=== PATIENT | female | born 1985 | race Asian ===

== ENCOUNTER 2019-10-15 20:18 | Emergency (ER) | payer BC ==
[~2019-10-15] VITALS: Ht 167.6 cm; Wt 53.6 kg
[2019-10-15 21:01] LABS: CALCIUM 8.4 mg/dL (8.5-10.1); CARBON DIOXIDE 28.9 mmol/L (21-32); CHLORIDE SERUM 103 mmol/L (98-107); CREATININE SERUM 0.9 mg/dL (0.6-1.0); GFR1 > 60 mL/min; GLUCOSE SERUM 118 mg/dL (74-106); POTASSIUM SERUM 3.4 mmol/L (3.5-5.1); SODIUM SERUM 139 mmol/L (136-145)
[2019-10-15 21:13] LABS: ALBUMIN 4.1 g/dL (3.4-5.0); ALKALINE PHOSPHATASE 66 U/L (46-116); ALT/SGPT 28 U/L (14-59); AST/SGOT 16 U/L (15-37); BASOPHIL % 0.3 % (0-2); BILIRUBIN TOTAL 0.47 mg/dL (0.20-1.00); LIPASE 174 IU/L (73-393); MAGNESIUM 2.4 mg/dL (1.8-2.4); PLATELET COUNT 250 x10^3mcL (130-400); RED CELL DISTRIBUTION WIDTH 14.1 % (11.5-14.5); TOTAL PROTEIN, SERUM 6.9 g/dL (6.4-8.2)
[2019-10-15 22:10] VITALS: BP 98/61
== END 2019-10-15 22:10 | disposition home or self-care (01) ==
LOC: ED 20:18
PROVIDERS: Emergency Medicine
DX: R19.7 Diarrhea, unspecified (principal); R11.2 Nausea with vomiting, unspecified; R42 Dizziness and giddiness
CPT/HCPCS: Q0092; Q0162